=== PATIENT | female | born 1955 | race Caucasian/White ===

== ENCOUNTER → 2019-12-02 | Outpatient (CLI) | payer MEDICAID ==
[~2019-12-02] MED LIST: CITA40TA11 PO; HYDR-700 PO; HYDR25TA4 PO
== END ==
LOC: WOUNDCARE 08:53
PROVIDERS: ATTEND Surgery
DX: L89.152 Pressure ulcer of sacral region, stage 2 (principal); Q85.01 Neurofibromatosis, type 1
CPT/HCPCS: 99203

== ENCOUNTER 2019-12-03 05:42 | Outpatient (RCR) | payer MEDICAID ==
[~2019-12-03] VITALS: Ht 162.6 cm; Wt 100.5 kg
[2019-12-03] MEDS ORDERED: CITA40TA11 PO (15:13)
[2019-12-03] MEDS ORDERED: HYDR-700 PO (15:13)
[2019-12-03] MEDS ORDERED: HYDR25TA4 PO (15:13)
[2019-12-10] MEDS ORDERED: TRAM50TA3 PO (15:13)
== END 2019-12-08 10:28 | disposition home or self-care (01) ==
LOC: PREOP 05:42
PROVIDERS: ATTEND Surgery
DX: Z01.818 Encounter for other preprocedural examination (principal); Z20.828 Contact with and (suspected) exposure to other viral communicable diseases; R22.2 Localized swelling, mass and lump, trunk

== ENCOUNTER → 2019-12-05 | Outpatient (CLI) | payer MEDICAID ==
[~2019-12-05] MED LIST changes: +TRAM50TA3 PO
== END ==
LOC: LAB FS 10:26
PROVIDERS: ATTEND Surgery
DX: Z01.812 Encounter for preprocedural laboratory examination (principal); Z20.828 Contact with and (suspected) exposure to other viral communicable diseases
CPT/HCPCS: 87635

== ENCOUNTER 2019-12-10 11:16 | Day surgery (SDC) | payer MEDICAID ==
[~2019-12-10] VITALS: Ht 162.6 cm; Wt 100.5 kg
[2019-12-10] VITALS (11 sets, daily range): BP systolic 116–161; BP diastolic 55–92
[~2019-12-10 11:16] MED LIST changes: -TRAM50TA3 PO
[2019-12-10] MEDS ORDERED: LACTATED RINGERS 1,000 ML IV PRN (11:22)
[2019-12-10] MEDS ORDERED: CLINDAMYCIN 600 MG/50 ML IVPB 50 ML IV ONE (11:30)
--- NOTE | 2019-12-10 13:17 | Progress Note-Pre Operative ---
Pre-Operative Progress Note H&P Reviewed The H&P was reviewed, patient examined and no changes noted. Time Seen by Provider: 13:15 Date H&P Reviewed: Dec 10, 2019 Time H&P Reviewed: 13:15 Pre-Operative Diagnosis: Gluteal mass KEIKO ZAYAS DO Dec 10, 2019 13:17
[2019-12-10] MEDS ORDERED: SEVOFLURANE (ULTANE) 15 ML INHAL SOLN ONE ×2 (13:25→15:29)
[2019-12-10] MEDS ORDERED: LIDOCAINE PF 2% 5 ML (XYLOCAINE) VIAL ONE (13:25)
[2019-12-10] MEDS ORDERED: proPOfol 200 MG/20 ML (DIPRIVAN) VIAL IV ONE (13:25)
[2019-12-10] MEDS ORDERED: ONDANSETRON 4 MG/2 ML (SDV) Z0FRAN ONE ×3 (13:25→15:39)
[2019-12-10] MEDS ORDERED: MIDAZOLAM 2 MG/2 ML (VERSED) VIAL ONE (13:25)
[2019-12-10] MEDS ORDERED: DEXAMETHASONE 10 MG/ML (DECADRON) 1 ML VIAL ONE (13:25)
[2019-12-10] MEDS ORDERED: fentaNYL INJECTION 100 MCG/2 ML AMP ONE (13:26)
[2019-12-10] MEDS ORDERED: BUP/EPI 0.5% 1:200,000 (SENSORCAINE) 30 ML VIAL ONE (13:39)
--- OUTSIDE RECORDS SUMMARY | 2019-12-10 14:01 | XMS REPORT | Continuity of Care Document ---
Author Organization Unknown Address Unknown Phone Unavailable Allergies Active Description Code Type Severity Reaction Onset Reported/Identified Relationship to Patient Clinical Status Yes cephalexin [id number] Drug Allerg y Unknown FEVER BLISTERS 12/03/2019 Yes codeine [id number] Drug Allergy Unknown Vomiting 12/03/2019 Medications There is no data. Problems Date Dx Coded Attending Type Code Diagnosis Diagnosed By 12/04/2019 ARELIS POLLACK, ROBYN Cunha Ot L89.152 PRESSURE ULCER OF [place], STAGE 2 12/04/2019 ARELIS POLLACK, ROBYN Cunha Ot Q85.01 NEUROFIBROMATOSIS, TYPE 1 12/08/2019 ROBYN INFANTE MD, Ot L89.152 PRESSURE ULCER OF [place], STAGE 2 12/08/2019 ROBYN INFANTE MD, Ot Q85.01 NEUROFIBROMATOSIS, TYPE 1 Procedures There is no data. Results Test Result Range LIPID PANEL - 05/05/19 12:57 CHOLESTEROL, TOTAL 207 mg/dL <200 HDL CHOLESTEROL 65 mg/dL >50 TRIGLYCERIDES 107 mg/dL <150 LDL-CHOLESTEROL 121 mg/dL (calc) NRG CHOL/HDLC RATIO 3.2 (calc) <5.0 NON HDL CHOLESTEROL 142 mg/dL (calc) <13 0 CMP - 05/05/19 12:57 GLUCOSE 103 mg/dL 65-99 UREA NITROGEN (BUN) 27 mg/dL 7-25 CREATININE 0.92 mg/dL 0.50-0.99 eGFR NON-AFR. SAMOAN 67 mL/min/1.73m2 > OR = 60 eGFR 78 mL/min/1.73m2 > OR = 60 BUN/CREATININE RATIO 29 (calc) 6-22 SODIUM 139 mmol/L 135-146 POTASSIUM 4.0 mmol/L 3.5-5.3 CHLORIDE 99 mmol/L 98-110 CARBON DIOXIDE 31 mmol/L 20-32 CALCIUM 9.3 mg/dL 8.6-10.4 PROTEIN, TOTAL 7.0 g/dL 6.1-8.1 ALBUMIN 4.2 g/dL 3.6-5.1 GLOBULIN 2.8 g/dL (calc) 1.9-3.7 ALBUMIN/GLOBULIN RATIO 1.5 (calc) 1.0-2. 5 BILIRUBIN, TOTAL 0.6 mg/dL 0.2-1.2 ALKALINE PHOSPHATASE 90 U/L 33-130 AST 12 U/L 10-35 ALT 11 U/L 6-29 Coronavirus SARS-CoV-2 SO 2018 0 10:05 Coronavirus Ab [Units/volume] in Serum Negative Negative Encounters ACCT No. Visit Date/Time Discharge Status Pt. Type Provider Facility Loc./Unit Complaint [id number] 12/10/2019 08:15:00 ACT Outpatient [facility] [id number] 05/05/2019 13:00:00 Document Registration [id number] 12/03/2019 05:42:00 020 10:28:00 DIS Outpatient KEIKO ZAYAS DO [facility] PREOP GLUTEAL MASS [id number] 12/05/2019 10:26:00 23:59:59 CLS Outpatient KEIKO ZAYAS DO [facility] LAB FS PRE OP REQUIREMENT [id number] 12/02/2019 08:53:00 23:59:59 CLS Outpatient ROBYN INFANTE MD [facility] WOUNDCARE [id number] 12/10/2019 11:16:[address] Outpatient KEIKO ZAYAS DO [facility] SDC GLUTEAL MASS
--- NOTE | 2019-12-10 15:12 | Progress Note-Post Operative ---
Post-Operative Progess Note Surgeon (s)/Visitor Services Assistant (s) Surgeon KEIKO ZAYAS DO Visitor Services Assistant: none Pre-Operative Diagnosis Gluteal mass Post-Operative Diagnosis same pending path Procedure & Operative Findings Date of Procedure 12/10/19 Procedure Performed/Findings Excision of gluteal mass, 6.1 cm incision into subq fat Anesthesia Type GET Estimated Blood Loss Estimated blood loss (mL): scant Specimens/Packing Specimens Removed gluteal mass, 6.5 x 5.4 x 3.3cm KEIKO ZAYAS DO Dec 10, 2019 15:12
[2019-12-10] MEDS ORDERED: TRAM50TA3 PO (15:13)
--- NOTE | 2019-12-10 15:15 | Discharge Inst-Surgical ---
Discharge Inst-Surgical Depart Medication/Instructions New, Converted or Re-Newed RX: RX Given to Pt/Family Patient Instructions Follow up Appt: Make appointment for 1 week. [phone] Instructions: No lifting greater than 20 pounds. No strenuous activity. May shower in 24 hours, no tub bath or soaking. Use incentive spirometer at home as directed. No Smoking Skin/Wound Care: May remove bandages in am. You need to leave the sutures in place and come to office to have them removed. Symptoms to Report: Appetite Changes, Extremity Discoloration, Numbness/Tingling, Swelling Increased, Bleeding Excessive, Eyesight Changes, Pain Increased, Urine Color Change, Constipation(Persistent), Fever over 101 degree F, Pain/Pressure in chest, Urinating Difficulty, Cough Up/Vomit Blood, Heart Beat Irreg/Pounding, Pain/Pressure in jaw, Cramps in feet or legs, Lightheadedness, Pain/Pressure in shoulder, Diarrhea(Persistent), Memory Changes Suddenly, Questions/Concerns, Weight gain consecutive days, Dizziness/Fainting, Nausea/Vomiting, Shortness of Breath, Weight gain over 2 pounds If questions or concerns contact your physician Or seek help at emergency department. Activity Activity as Tolerated: Yes Activity Instructions: Avoid Stress to Incision Driving Instructions: No Driving/Refer to Dr. Galarza Discharge Diet: No Restrictions Diet After 24 Hours: Clear Liquid if Nauseous If Any Problems/Questions/Issu: Contact Your Physician, Go to Emergency Room Skin/Wound Care Infection Signs and Symptoms: Increased Redness, Foul Odor of Wound, Increased Drainage, Skin Itchy or Has a Rash, Increased Swelling, Temperature Above 101 F Bathing Instructions: Shower Ice Pack: Ice On and Off Site KEIKO ZAYAS DO Dec 10, 2019 15:14
[2019-12-10] MEDS ORDERED: ROCURONIUM 10 MG/ML 5 ML SYRINGE IV ONE (15:28)
[2019-12-10] MEDS ORDERED: morphine INJ 10 MG/ML 1ML (SYR OR VIAL) IVP ONE (15:30)
[2019-12-10] MEDS: ONDANSETRON 4 MG/2 ML (SDV) Z0FRAN IVP PRN ×2 (15:32→15:42)
[2019-12-10] MEDS ORDERED: PROMETHAZINE INJ 25 MG/ML (PHENERGAN) AMP ONE (15:51)
[2019-12-10] MEDS ORDERED: PROMETHAZINE INJ 25 MG/ML (PHENERGAN) AMP IVP ONE (16:00)
--- NOTE | 2019-12-10 16:10 | Anesthesia-General Post-Op ---
General Patient Condition Mental Status/LOC: Same as Preop Cardiovascular: Satisfactory Nausea/Vomiting: Present (Nausea but no vomiting) Respiratory: Satisfactory Pain: Controlled Complications: Absent Post Op Complications Complications None Follow Up Care/Instructions Patient Instructions None needed. Anesthesia/Patient Condition Patient Condition Patient is doing well, still C/O nausea after zofran x 2 and phenergan 12.5 mg x 1. She said she "just needs to puke." Otherwise she is doing well and has stable vital signs, no apparent adverse anesthesia problems. JOSHUA TAYLOR DO Dec 10, 2019 16:10
--- NOTE | 2019-12-10 16:20 | NUR ---
TO AMB SURG FROM PAR PER CART. AWAKE, SLIGHTLY DROWSY. ON O2 AT 2L PER NC ON ARRIVAL TO ROOM. TAPED ABD DRESSING D/I TO SURGICAL SITE AT [facility]CR[facility]/COCCYX. DENIES NAUSEA. PO FLUIDS PROVIDED.
--- NOTE | 2019-12-10 17:00 | NUR ---
HAS BEEN ON ROOM AIR FOR 20 MIN WITH SAO2 91-93% INSTRUCTED ON INCENTIVE SPIROMETRY USE. NO CHANGE IN PAIN OR SITE ASSESSMENTS.
--- NOTE | 2019-12-10 17:45 | NUR ---
NO CHANGE IN ASSESSMENTS. ALERT, REQUESTING DISMISSAL.
--- NOTE | 2019-12-11 04:55 | OPERATIVE REPORT ---
DATE OF SERVICE: 12/10/2019 PREOPERATIVE DIAGNOSIS: Gluteal mass. POSTOPERATIVE DIAGNOSIS: Gluteal mass, pending pathology. PROCEDURE: Excision of left gluteal mass with a 6.1 cm incision. SURGEON: Jorge Luis Mitchell DO BED WORKER: None. ANESTHESIA: General endotracheal tube. SPECIMEN: Gluteal mass measuring 6.5 x 5.4 x 3.3 cm. BLOOD LOSS: Scant. FLUIDS: Per anesthesia. POSTOPERATIVE CONDITION: Stable. INDICATION FOR PROCEDURE: The patient is a 64-year-old female who unfortunately has neurofibromatosis and has masses all over and she has one on the gluteal area that has started to cause pain and become irritated with a foul smelling odor wanted to get this removed. FINDINGS: The patient had a gluteal mass removed, it measured 6.5 x 5.4 x 3.3 cm, requiring a 6.1 cm incision down into the subcutaneous fat. PROCEDURE NOTE: After informed consent was obtained, the patient was brought to the operating room, placed on the table in the right lateral decubitus position. She was sterilely prepped and draped in normal fashion. Local lidocaine was used to infiltrate the skin in the gluteal area around this mass. It was on a stalk and the stalk was then cut off, but had to extend the excision with vertically to 6.1 cm in an elliptical incision to be able to close it. Did this with a #15 blade, carried down through the skin into subcutaneous tissue, deepened to subcutaneous tissue with Bovie electrocautery, removing this and passed this off table to be sent to pathology. Once this was completely removed, then elected to close the incision with 2-0 nylon. Approximately 7 interrupted vertical mattress sutures. Area was then cleaned and dried, dressing was placed. The patient tolerated the procedure. Sponge, instrument and needle count correct at the end of the case. Job ID: [id number] DocumentID: [id number] Dictated Date: 12/10/2019 18:47:19 [employer] Professor Date: 12/11/2019 04:54:34 Dictated By: JORGE LUIS MITCHELL DO
== END 2019-12-10 17:45 | disposition home or self-care (01) ==
LOC: SDC 11:16
PROVIDERS: ATTEND Surgery
DX: D36.16 Benign neoplasm of peripheral nerves and autonomic nervous system of pelvis (principal); F41.9 Anxiety disorder, unspecified; F32.9 Major depressive disorder, single episode, unspecified; I10 Essential (primary) hypertension; M06.9 Rheumatoid arthritis, unspecified; F17.210 Nicotine dependence, cigarettes, uncomplicated; E66.9 Obesity, unspecified; Z68.38 Body mass index [BMI] 38.0-38.9, adult; Z79.899 Other long term (current) drug therapy; Z88.5 Allergy status to narcotic agent; Z88.1 Allergy status to other antibiotic agents; Z80.0 Family history of malignant neoplasm of digestive organs
CPT/HCPCS: 87081; 88305

== ENCOUNTER → 2020-03-15 | Outpatient (CLI) | payer MEDICAID ==
[~2020-03-15] MED LIST changes: +TRAM50TA3 PO
== END ==
LOC: CARD 15:00
PROVIDERS: ATTEND Family Medicine
DX: I21.09 ST elevation (STEMI) myocardial infarction involving other coronary artery of anterior wall (principal); I35.8 Other nonrheumatic aortic valve disorders
CPT/HCPCS: 93306